=== PATIENT | female | born 1950 | race Caucasian/White ===

== ENCOUNTER 2022-04-08 14:33 | Emergency (ER) | payer MEDICARE, SELFPAY ==
[2022-04-08 17:40] VITALS: BP 152/88; PULSE 66; O2SAT 98
[2022-04-08 18:00] VITALS: BP 160/76; PULSE 69; O2SAT 98
--- NOTE | 2022-04-08 18:06 | CRLHL7_ITS ---
For Patients: As a result of the Century Cures Act, medical imaging exams and procedure reports are released immediately into your electronic medical record. You may view this report before your referring provider. If you have questions, please contact your health care provider. INDICATION: Fall, head TECHNIQUE: Head CT without contrast. COMPARISON: None FINDINGS: CSF spaces: Within normal limits for age. Brain parenchyma: Normal de leon-white junction. No sign of mass, hemorrhage, or midline shift. Skull base and calvarium: The visualized paranasal sinuses and mastoid air cells demonstrate no acute or significant findings. The visualized orbits are grossly unremarkable. No skull fractures. There is intracranial atherosclerosis. IMPRESSION: No acute intracranial hemorrhage or skull fracture. Please note that all CT scans at this facility use dose modulation, iterative reconstruction, and/or weight-based dosing when appropriate to reduce radiation dose to as low as reasonably achievable. Dictated by Anel Gonzalez MD @ 04/08/2022 6:48:17 PM (Electronically Signed)
--- NOTE | 2022-04-08 18:06 | CRLHL7_ITS ---
For Patients: As a result of the Century Cures Act, medical imaging exams and procedure reports are released immediately into your electronic medical record. You may view this report before your referring provider. If you have questions, please contact your health care provider. INDICATION: Fall, hit back of head TECHNIQUE: CT cervical spine without contrast. COMPARISON: None FINDINGS: Vertebral alignment: Alignment is normal. Vertebrae: There are no fractures or suspicious bony lesions. Discs and facet joints: There are [id number] multilevel degenerative disc and facet changes. Extraspinal findings: Paraspinous soft tissues are unremarkable. IMPRESSION: 1. No sign of acute injury. 2. Multilevel degenerative spondylosis. Please note that all CT scans at this facility use dose modulation, iterative reconstruction, and/or weight-based dosing when appropriate to reduce radiation dose to as low as reasonably achievable. Dictated by Anel Gonzalez MD @ 04/08/2022 6:54:28 PM (Electronically Signed)
--- NOTE | 2022-04-08 18:33 | ED.GENADULT ---
HPI - General Adult General Chief complaint: Dizziness/Vertigo Stated complaint: Fell and hit head on Thursday, vertigo since Time Seen by Provider: 04/08/22 17:52 History of Present Illness HPI narrative: Dee is a 71-year-old female patient who has known history of hypertension, depression with anxiety, and recent diagnosis of de Quervain tenosynovitis who fell on Friday 04/06. The patient states that she was walking when she fell backwards onto her buttock and bilateral palms. She states she did continue following backwards and struck her head. She had no loss of consciousness. She is not on a blood thinner. She states after the fall, she felt ?okay?. However, as time has gone on, she has developed soreness in her neck and headache. The patient denies blurry vision, double vision, or numbness/paresthesias in her hands. She reports bilateral bruising on both hands. She recently had cortisone injections for the de Quervain tenosynovitis and has followed with physical therapy for this concern. The patient stated after she saw her physical therapist he recommended she be seen for neck and had concerns with request for evaluation with CT. The patient denies taking medications for pain prior to arrival, and she states that she does not need pain control at this time. See nursing notes for complete details. Related Data Home Medications Medication Instructions Recorded Confirmed amitriptyline 10 mg tablet mg 04/08/22 buspirone 7.5 mg tablet mg 04/08/22 escitalopram oxalate 10 mg tablet mg 04/08/22 losartan 50 mg tablet mg 04/08/22 simvastatin 40 mg tablet mg 04/08/22 Allergies Allergy/AdvReac Type Severity Reaction Status Date / Time lisinopril Allergy Verified 04/08/22 15:17 Phenothiazines Allergy Verified 04/08/22 15:17 Review of Systems Const: Denies: fever, fatigue or malaise Eyes: Denies: change in vision or blurry vision ENMT: Denies: neck pain or vertigo Cardio: Denies: chest pain or shortness of breath with exertion Resp: Denies: shortness of breath or cough GI: Denies: nausea or vomiting Musculo: Reports: extremity pain; Denies: neck pain, extremity swelling or limited range of motion Neuro: Reports: headache; Denies: numbness in extremities, weakness in extremities, lack of coordination, dizziness or vertigo Endo: Denies: fatigue [facility] Social History Smoking Status: Never smoker Do you use any of these nicotine containing products: None Second hand tobacco smoke exposure: No How often do you have a drink containing alcohol: never How often do you have six or more drinks on one occasion: Never AUDIT-C Alcohol total score: 0 Non-prescribed substance use: denies use Exam Const: Vital Signs, click to edit/add: Vital Signs - 24 hr 04/08/22 17:40 04/08/22 18:00 Pulse Rate [Left P ulse Oximeter] 66 69 Blood Pressure [Ri ght Upper Arm] 152/88 H 160/76 H Pulse Oximetry 98 98 Oxygen Delivery Me thod Room Air Room Air Documenting provider has reviewed patient's vital signs: yes Common normals: no apparent distress, average body habitus, oriented x3, alert and well nourished General appearance: cooperative, comfortable, well kempt and well developed Orientation/consciousness: Yes awake, Yes oriented to person, Yes oriented to place and Yes oriented to time Eye: Common normals: PERRL and EOMs intact bilaterally Pupil: PERRL Neck & C-Spine: Common normals: full ROM, no lymphadenopathy and supple General: tenderness (Improves with palpation.) Cervical spine: cervical ROM normal and paracervical muscle tenderness (Improves with palpation.) Resp: Common normals: normal respiratory effort, no use of accessory muscles and clear to auscultation bilaterally Effort & inspection: able to speak in complete sentences Auscultation: clear to auscultation bilaterally Cardio: Common normals: regular rate, regular rhythm, S1 normal heart sound, S2 normal heart sound, no clicks and no murmurs Rate: regular rate Rhythm: regular rhythm Heart sounds: S1 normal and S2 normal GI: Common normals: soft to palpation Palpation: soft, firm and tender Back & Pelvis: Common normals: thoracic and lumbar spine normal to inspection and no thoracic nor lumbar tenderness Pelvis: buttocks normal, no pain with anterior-posterior compression and no pain with lateral compression Extremity: Common normals: normal to inspection, full ROM and no clubbing, cyanosis or edema Right upper extremity: wrist Right wrist: inspection (Bruising bilateral thenar eminence.), ROM (Normal) and neurovascular exam (No sensory or motor deficit appreciated) Left upper extremity: wrist Left wrist: inspection (Bruising at the thenar eminence noted), palpation (Minimally tender with palpation), ROM (Normal) and neurovascular exam (No motor or sensory deficits appreciated) Neuro: Cam Coma Scale: document GCS findings Cam coma scale eye opening: Spontaneous (4) Cam coma scale verbal response: Orientated (5) Leisenring coma scale motor response: Obey commands (6) Cam coma scale total score: 15 Common normals: oriented x3 Sensorium/orientation: awake, alert, oriented to person, oriented to place and oriented to time Cranial nerves: CN normal except as noted Coordination/balance: egdudb-[id number] test normal Speech: speech normal Gait (neuro): normal gait Motor exam: strength 5/5 throughout and no pronator drift Coordination: bgtgek-tu-[id number] test normal Psych: Common normals: mental status grossly normal, thought process normal, cooperative, affect normal and speech normal Appearance: well kempt Attitude: calm Speech: normal speech Thought process: normal thought process Thought content: normal thought content Attention/concentration: attention grossly intact Memory/cognition: memory grossly intact Insight: insight good Judgement: judgment good Skin: Common normals: no rashes or lesions noted General skin exam: no rashes or lesions noted Course Course Hospital Course: Dee presented to the emergency department with complaints of dizziness after recent fall on 04/06 with request for evaluation given new onset neck pain and headache. Imaging was performed. She declined laboratory studies for pain control. Results were discussed and patient verbalized understanding. Vital Signs Vital signs: Initial Vital Signs Pulse Rate 66 04/08/22 17:40 Blood Pressure 152/88 H 04/08/22 17:40 Blood Pressure Mean 109 04/08/22 17:40 Blood Pressure Position Supine 04/08/22 17:40 Pulse Oximetry 98 04/08/22 17:40 Oxygen Delivery Method 04/08/22 17:40 Vital Signs Pulse Rate 66 04/08/22 17:40 Blood Pressure 152/88 H 04/08/22 17:40 Pulse Oximetry 98 04/08/22 17:40 Oxygen Delivery Method 04/08/22 17:40 Pulse Rate 69 04/08/22 18:00 Blood Pressure 160/76 H 04/08/22 18:00 Pulse Oximetry 98 04/08/22 18:00 Oxygen Delivery Method 04/08/22 18:00 Medical Decision Making MDM Narrative Medical decision making narrative: Life-threatening differential diagnosis considered includes CVA, subarachnoid hemorrhage, subdural hemorrhage, and epidural hemorrhage. Other differential diagnoses considered include concussion and closed head/neck injury. Imaging Data CT scan - head: Attestation: I have reviewed the pertinent imaging results. Radiologist's impression: IMPRESSION: 1. No sign of acute injury. 2. Multilevel degenerative spondylosis. Discharge Plan Discharge Clinical Impression: Dizziness due to old head injury Concussion Qualifiers: Encounter type: initial encounter Loss of consciousness presence/duration: without LOC Qualified Code(s): S06.0X0A - Concussion without loss of consciousness, initial encounter Patient Disposition: Home, Self-Care Condition: Stable Instructions: Concussion (ED) Additional Instructions: Thank you for choosing [facility] for your care today. No physical activity today. Limit mental stress or intense mental activities until symptoms resolved. A gradual step-jameson return to mild/moderate intensity activities, slowly returning to full activity only after symptom free at each step. No sedatives or medications that may make you sleepy. No alcohol or other non-prescription drugs, except as prescribed. Do not drive/operate machinery. Avoid strenuous activity, including lifting/straining. Call primary care physician for 1 week recheck of symptoms. If new or worsening symptoms develop or you have any concerns in the meantime, please call your primary care clinic or return to the ER for re-evaluation. Activity Level: No Restrictions and Activity as Tolerated Discharge Diet: Regular and Heart Healthy (2 gm sodium, low fat) Prescriptions: No Action losartan 50 mg tablet simvastatin 40 mg tablet amitriptyline 10 mg tablet buspirone 7.5 mg tablet escitalopram oxalate 10 mg tablet Stand Alone Forms: [employer] Info Instructions
[2022-04-08] MEDS: ACETAMINOPHEN 325 MG TABLET 650 MG PO (20:11)
[2022-04-08 20:12] VITALS: PULSE 66; O2SAT 99
== END 2022-04-08 20:21 | disposition home or self-care (01) ==
PROVIDERS: Emergency Provider Family Medicine; PCP Physician Assistant
DX: R42 Dizziness and giddiness (principal); S06.0X0A Concussion without loss of consciousness, initial encounter
CPT/HCPCS: 70450; 72125; 99284; A9270

== ENCOUNTER 2023-01-16 14:38 | Outpatient (CLI) | payer MEDICARE, SELFPAY | END 2023-01-16 14:39 | disposition home or self-care (01) | LOC: AMB 01-19 10:51 | PROVIDERS: PCP Physician Assistant; Visit Provider Emergency Medicine Emergency Medical Services | DX: R55 Syncope and collapse (principal) | CPT/HCPCS: A0425; A0427 ==

== ENCOUNTER 2023-01-16 15:12 | Emergency (ER) | payer MEDICARE, SELFPAY ==
[2023-01-16] VITALS (19 sets, daily range): BP systolic 132–160; BP diastolic 73–80; PULSE 64–100; RESP 20; TEMP 35.9; O2SAT 93–100; BMI 24.6
--- NOTE | 2023-01-16 15:17 | CRLHL7_ITS ---
For Patients: As a result of the Cures Act, medical imaging exams and procedure reports are released immediately into your electronic medical record. You may view this report before your referring provider. If you have questions, please contact your health care provider. Indication: Fall, injury Technique: Volumetric multidetector CT images of the head were obtained without the administration of low osmolar intravenous contrast. Comparison: CT head April 08, 2022 Findings: There is no intra-axial or extra-axial fluid collection. There is no mass effect or midline shift. There is age-related cortical atrophy with mild sulcal widening and ex vacuo dilatation of the lateral ventricles. There is moderate chronic small vessel disease change within the subcortical and periventricular white matter. Otherwise, the brain parenchyma is preserved in attenuation and de leon-white differentiation. The orbits and their contents are grossly within normal limits. The bony calvarium is grossly intact. The paranasal sinuses are clear. The mastoid air cells are well aerated. Impression: 1. Age-related changes of the brain without acute intracranial abnormality. Please note that all CT scans at this facility use dose modulation, iterative reconstruction, and/or weight-based dosing when appropriate to reduce radiation dose to as low as reasonably achievable. Dictated by Bebo Sandy MD @ 01/16/2023 4:19:55 PM (Electronically Signed)
--- NOTE | 2023-01-16 16:13 | ED_ITS ---
HPI - General Adult General Chief complaint: Syncope/Fainted Stated complaint: Syncope Time Seen by Provider: 01/16/23 15:17 History of Present Illness HPI narrative: This 72-year-old female comes in for evaluation after having vertigo symptoms and feeling disoriented while swimming. She states that she took a breath and turned to swim and had loss of her sense of orientation. She did not breathe any water in and does not report any loss of strength or altered sensation. She states that it is vertigo symptoms that she was feeling with some associated nausea. She reports that these symptoms are minimal or absent if she closes her eyes and remains still. She does have a slight headache and reports some pain in the right side of her neck. She did bump her head a couple days ago but did not have loss of consciousness and did not think anything of it at the time. Related Data Home Medications Medication Instructions Recorded Confirmed amitriptyline 10 mg tablet mg 04/08/22 08/23/22 buspirone 7.5 mg tablet mg 04/08/22 08/23/22 escitalopram oxalate 10 mg tablet mg 04/08/22 08/23/22 losartan 50 mg tablet mg 04/08/22 08/23/22 Previous Rx's Medication Instructions Recorded nirmatrelvir 300 mg (150 mg See Rx Instructions PO .COMPLEX 08/23/22 x2)-ritonavir 100 mg tablet,dose #30 ea pack(EUA) (Paxlovid) meclizine 25 mg tablet 25 mg PO QID #20 tabs 01/16/23 ondansetron HCl 4 mg tablet 4 mg PO Q6H #10 tabs 01/16/23 Allergies Allergy/AdvReac Type Severity Reaction Status Date / Time lisinopril Allergy Verified 08/23/22 12:52 Phenothiazines Allergy Verified 08/23/22 12:52 Pcmlryk-CIG-HgL Reductase Allergy Verified 01/16/23 16:00 Inhibitor Review of Systems Status of ROS: Reports: 10 or more systems reviewed and unremarkable except as noted in History and below Narrative: Constitutional: No fevers, no weight gain or loss. Eyes: No discharge. No vision changes. HENT: No congestion, no sore throat, no ear pain. Cardiovascular: No chest pain, no palpitations. Respiratory: No shortness of breath, no wheezes, no cough. Gastrointestinal: No abdominal pain, no vomiting, no diarrhea. Genitourinary: No dysuria, no hematuria. Musculoskeletal: Normal range of motion. Skin: No rashes, no pruritis. Neurological: No weakness, sensory change, speech change. She reports vertigo symptoms that are worse with certain movements but relieved when remaining still. She has some associated nausea. Endo/Heme/Allergies: No bruising or bleeding. No polydipsia. Pysch: no suicidality, no anxiety, no insomnia. All other systems reviewed and are negative. [facility] Medical History (Updated 01/16/23 @ 18:45 by Trino Hayes MD) COVID-19 virus infection ?U07.1 - COVID-19 (ICD-10) Social History Smoking Status: Never smoker Do you use any of these nicotine containing products: None Second hand tobacco smoke exposure: No How often do you have a drink containing alcohol: never How often do you have six or more drinks on one occasion: Never AUDIT-C Alcohol total score: 0 Non-prescribed substance use: denies use Exam Narrative: Exam Narrative: Constitutional: Well-developed, well-nourished. HEENT: Normocephalic, atraumatic. No nystagmus. Neck: Normal range of motion. Nontender. Supple. Heart: Regular. No murmurs. Normal rate. Intact distal pulses. Lungs: Clear to auscultation. No chest discomfort. No wheezes, rhonchi, or rales. Abdomen: Normal bowel sounds. Nontender. No rebound tenderness. Genitalia: Deferred. Back: No midline tenderness. Normal range of motion. Extremities: Normal range of motion. No injury. Skin: Intact. No rash. Warm. No erythema or pallor. Neurologic: No altered sensation. No weakness. Alert and oriented. No facial asymmetry. Tongue is midline. General Office Dispatcher strength is equal bilaterally. She is able to raise each leg from the bed. Psychiatric: No suicidality. No anxiety or depression. No insomnia. Nursing notes and vitals signs are reviewed. Const: Vital Signs, click to edit/add: Vital Signs - 24 hr 01/16/23 15:23 01/16/23 15:48 01/16/23 16:00 Temperature 96.6 F L Pulse Rate 70 67 Pulse Rate [Pulse Oximeter] 100 Respiratory Rate 20 Blood Pressure Blood Pressure [Ri ght Upper Arm] 160/75 H Pulse Oximetry 100 98 99 Oxygen Delivery Me thod Room Air 01/16/23 16:01 01/16/23 16:15 01/16/23 16:30 Temperature Pulse Rate 66 66 64 Pulse Rate [Pulse Oximeter] Respiratory Rate Blood Pressure 139/76 Blood Pressure [Ri ght Upper Arm] Pulse Oximetry 97 93 98 Oxygen Delivery Me thod 01/16/23 16:32 01/16/23 16:45 01/16/23 17:00 Temperature Pulse Rate 65 71 68 Pulse Rate [Pulse Oximeter] Respiratory Rate Blood Pressure 151/80 H Blood Pressure [Ri ght Upper Arm] Pulse Oximetry 97 98 99 Oxygen Delivery Me thod 01/16/23 17:01 01/16/23 17:15 01/16/23 17:30 Temperature Pulse Rate 65 69 69 Pulse Rate [Pulse Oximeter] Respiratory Rate Blood Pressure 132/74 Blood Pressure [Ri ght Upper Arm] Pulse Oximetry 99 96 99 Oxygen Delivery Me thod 01/16/23 17:32 01/16/23 17:45 01/16/23 18:00 Temperature Pulse Rate 69 71 70 Pulse Rate [Pulse Oximeter] Respiratory Rate Blood Pressure 142/79 H Blood Pressure [Ri ght Upper Arm] Pulse Oximetry 96 97 97 Oxygen Delivery Me thod 01/16/23 18:02 01/16/23 18:15 01/16/23 18:30 Temperature Pulse Rate 71 78 80 Pulse Rate [Pulse Oximeter] Respiratory Rate Blood Pressure 138/73 Blood Pressure [Ri ght Upper Arm] Pulse Oximetry 95 96 97 Oxygen Delivery Me thod 01/16/23 18:32 Temperature Pulse Rate 77 Pulse Rate [Pulse Oximeter] Respiratory Rate Blood Pressure 137/77 Blood Pressure [Ri ght Upper Arm] Pulse Oximetry 98 Oxygen Delivery Me thod Course Vital Signs Vital signs: Initial Vital Signs Temperature 96.6 F L 01/16/23 15:23 Temperature Source Temporal Artery Scan 01/16/23 15:23 Pulse Rate 100 01/16/23 15:23 Respiratory Rate 20 01/16/23 15:23 Blood Pressure 160/75 H 01/16/23 15:23 Blood Pressure Mean 103 01/16/23 15:23 Blood Pressure Position Semi-Fowlers 01/16/23 15:23 Pulse Oximetry 100 01/16/23 15:23 Oxygen Delivery Method Room Air 01/16/23 15:23 Vital Signs Temperature 96.6 F L 01/16/23 15:23 Pulse Rate 100 01/16/23 15:23 Respiratory Rate 20 01/16/23 15:23 Blood Pressure 160/75 H 01/16/23 15:23 Pulse Oximetry 100 01/16/23 15:23 Oxygen Delivery Method Room Air 01/16/23 15:23 Temperature 96.6 F L 01/16/23 15:23 Pulse Rate 77 01/16/23 18:32 Respiratory Rate 20 01/16/23 15:23 Blood Pressure 137/77 01/16/23 18:32 Pulse Oximetry 98 01/16/23 18:32 Oxygen Delivery Method Room Air 01/16/23 15:23 Medical Decision Making MDM Narrative Medical decision making narrative: This patient comes in for evaluation of vertigo symptoms that occurred prior to arrival. She does continue to feel some nausea but states that the vertigo symptoms are absent if she remains still. She did bump her head a couple days ago but did not have loss of consciousness does report just a mild headache. CT imaging of her head returns with no acute findings. The patient did receive oral doses of Zofran and meclizine which brought sufficient of not off relief of her symptoms. The patient is able to get up and ambulate. She is okay to be discharged home and received prescriptions for Zofran and meclizine. Lab Data Labs: Lab Results 01/16/23 Range/Units 16:17 WBC 9.81 (4.50-11.00) K/uL RBC 4.84 (4.00-5.20) m/uL Hgb 14.4 (12.0-16.0) gm/dL Hct 43.5 (33.0-51.0) % MCV 90 (80-100) fL MCH 30 (26-34) pg MCHC 33 (32-36) gm/dL RDW Coeff of Petty 12.8 (11.5-15.5) % Plt Count 271 (140-440) K/uL Neut % (Auto) 83.1 H (42.0-72.0) % Lymph % (Auto) 8.7 L (20-44) % Branch % (Auto) 6.6 (0.0-11.0) % Eos % (Auto) 0.9 (0.0-7.0) % Baso % (Auto) 0.5 (0.0-3.0) % Neut # (Auto) 8.20 H (1.7-7.0) K/uL Lymph # (Auto) 0.90 (0.90-2.90) K/uL Branch # (Auto) 0.60 (0.00-0.90) K/UL Eos # (Auto) 0.09 (0.00-0.50) K/uL Baso # (Auto) 0.05 (0.00-0.30) K/uL Sodium 138 (135-149) mmol/L Potassium 3.7 (3.6-5.1) mmol/L Chloride 105 (96-114) mmol/L Carbon Dioxide 23 (20-32) mmol/L BUN 17 (7-30) mg/dL Creatinine 0.8 (0.5-1.5) mg/dL Estimated Creat Clear 49.79 Estimated GFR 77 ml/min Glucose 93 (60-115) mg/dL Calcium 9.0 (8.4-10.6) mg/dL Imaging Data CT scan - head: Radiologist's impression: Age-related changes of the brain without acute intracranial abnormality. ECG Data Attestation: I personally reviewed and interpreted this ECG as follows: Interpretation: Normal sinus rhythm. Rate is 70 beats per minute. There are no ST or T-wave abnormalities. Discharge Plan Discharge Clinical Impression: Acute vestibular neuritis Patient Disposition: Home, Self-Care Condition: Stable Additional Instructions: Take medication as needed and directed. Follow up with MD or return if worsening. Prescriptions: New ondansetron HCl 4 mg tablet 4 mg PO Q6H Qty: 10 0RF meclizine 25 mg tablet 25 mg PO QID Qty: 20 0RF No Action Paxlovid (EUA) 300 mg (150 mg x 2)-100 mg tablets,dose pack See Rx Instructions PO .COMPLEX Qty: 30 0RF Rx Instructions: take TWO 150 mg tablets of nirmatrelvir with ONE 100 mg tablet of ritonavir twice daily for 5 days PO losartan 50 mg tablet amitriptyline 10 mg tablet buspirone 7.5 mg tablet escitalopram oxalate 10 mg tablet Follow Up/Referrals: Nayla Ty PA [Primary Care Provider] - Stand Alone Forms: [employer] [place] Info Instructions
[2023-01-16] MEDS: ONDANSETRON 2 MG/ML inj 4 MG IVP (16:20)
[2023-01-16] MEDS: MECLIZINE HCL 25 MG TABLET PO (16:20)
[2023-01-16 16:22] LABS: Basophils Absolute Auto 0.05 K/uL (0.00-0.30); Basophils Percent Auto 0.5 % (0.0-3.0); Eosinophils Absolute Auto 0.09 K/uL (0.00-0.50); Eosinophils Percent Auto 0.9 % (0.0-7.0); Hematocrit 43.5 % (33.0-51.0); Hemoglobin* 14.4 gm/dL (12.0-16.0); Immature Granulocytes Abs Auto 0.02 K/uL (0.00-0.30); Immature Granulocytes Pct Auto 0.2 %; Lymphocytes Percent Auto 8.7 % (20-44); Mean Corpuscular HGB Conc 33 gm/dL (32-36); Mean Corpuscular Hemoglobin 30 pg (26-34); Mean Corpuscular Volume 90 fL (80-100); Monocytes Percent Auto 6.6 % (0.0-11.0); Neutrophils Percent Auto 83.1 % (42.0-72.0); Platelet Count* 271 K/uL (140-440); RDW Coefficient of Variation % 12.8 % (11.5-15.5); Red Blood Count 4.84 m/uL (4.00-5.20); White Blood Count* 9.81 K/uL (4.50-11.00)
[2023-01-16 16:23] LABS: Slide Review Reflex No
[2023-01-16 16:41] LABS: Chloride* 105 mmol/L (96-114); Potassium* 3.7 mmol/L (3.6-5.1); Sodium* 138 mmol/L (135-149)
[2023-01-16 16:44] LABS: Blood Urea Nitrogen* 17 mg/dL (7-30); Carbon Dioxide* 23 mmol/L (20-32); Creatinine* 0.8 mg/dL (0.5-1.5); Est. Creatinine Clearance* 49.79; Estimated Glomerular Filt Rate 77 ml/min; Glucose* 93 mg/dL (60-115)
[2023-01-16] MEDS: METOCLOPRAMIDE HCL 5 MG/ML INJ 10 MG IV (18:02)
== END 2023-01-16 18:56 | disposition home or self-care (01) ==
PROVIDERS: Emergency Provider Emergency Medicine Emergency Medical Services; PCP Physician Assistant
DX: G58.8 Other specified mononeuropathies (principal)
CPT/HCPCS: 36415; 70450; 80048; 85025; 96374; 96375; 99284; A9270; J2405; J2765